=== PATIENT | male | born 1995 | race Caucasian/White ===

== ENCOUNTER 2021-07-18 22:30 | Emergency (ER) | payer SELFPAY ==
[~2021-07-18] VITALS: Ht 172.7 cm; Wt 65.0 kg
[2021-07-19 15:24] VITALS: BP 113/82
== END 2021-07-19 15:23 | disposition home or self-care (01) ==
LOC: ER 22:30
DX: F15.10 Other stimulant abuse, uncomplicated (principal); R41.82 Altered mental status, unspecified
CPT/HCPCS: 36415; 80320; 82962; 99285; G0480